=== PATIENT | male | born 1975 | race Hispanic/Latino ===

== ENCOUNTER 2020-02-14 12:20 | Emergency (ER) | payer OTHER ==
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
[2020-02-14 12:59] VITALS: BP 136/86
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
== END 2020-02-14 16:25 | disposition home or self-care (01) ==
LOC: ED 12:20
DX: S09.90XA Unspecified injury of head, initial encounter (principal); M25.521 Pain in right elbow; M25.531 Pain in right wrist; Z79.899 Other long term (current) drug therapy; V49.59XA Passenger injured in collision with other motor vehicles in traffic accident, initial encounter; Y92.410 Unspecified street and highway as the place of occurrence of the external cause; Y93.89 Activity, other specified; Y99.8 Other external cause status
CPT/HCPCS: 70450; 72125